=== PATIENT | female | born 1990 | race Caucasian/White ===

== ENCOUNTER 2023-12-01 09:13 | Outpatient (CLI) | payer OTHER, SELFPAY ==
[2023-12-01 16:03] LABS: Chlamydia DNA Amplified* NOT DETECTED (No Detected); GC DNA Amplified* NOT DETECTED (No Detected)
== END 2023-12-01 09:14 | disposition home or self-care (01) ==
PROVIDERS: Visit Provider Registered Nurse
DX: Z01.419 Encounter for gynecological examination (general) (routine) without abnormal findings (principal); R68.82 Decreased libido; R53.83 Other fatigue; Z11.3 Encounter for screening for infections with a predominantly sexual mode of transmission
CPT/HCPCS: 80061; 82947; 84443; 87491; 87591

== ENCOUNTER 2023-12-21 08:25 | Outpatient (CLI) | payer OTHER, SELFPAY ==
--- NOTE | 2023-12-21 08:45 | MM_ITS ---
Patient: JUAN CARLOS MCCOY Facility:?[facility] Patient ID:?[id number] Site Patient ID:?[id number]. Site :?1990 Study:?XRay-Breast Left 3D W/CAD-12/21/2023 9:08:00 AM Ordering Physician:?Grisel Ch Final Report: DIGITAL DIAGNOSTIC LEFT MAMMOGRAM USING TOMOSYNTHESIS AND COMPUTER-AIDED DETECTION LEFT BREAST ULTRASOUND CLINICAL HISTORY: LEFT breast lump. COMPARISON: None. TECHNIQUE: Digital LEFT mammogram in two projections. Tomosynthesis and CAD utilized. Real-time ultrasound imaging of LEFT breast with imaging documentation. BREAST COMPOSITION: The breast is heterogeneously dense, which may obscure small masses. FINDINGS: 3D CC/MLO LEFT breast mammogram images submitted. No suspicious masses or architectural distortion. No adenopathy or suspicious calcifications. Targeted LEFT breast ultrasound performed in the area of concern at 10 o`clock 7 cm from the nipple. Normal fibroglandular tissue is present. No fluid collection or mass. IMPRESSION: No evidence of malignancy. No suspicious findings. RECOMMENDATIONS: Clinical follow-up. Age-appropriate screening mammography. Results and recommendations were discussed with the patient at the time of the exam. BI-RADS Category 2: Benign A lay language report of this examination will be provided to the patient. Dictated by Kevin Hinojosa MD @ 12/21/2023 10:03:35 AM jj/Dictated by: Kevin Hinojosa MD @ 12/21/2023 10:03:00 AM Signed by:?Kevin Hinojosa MD @12/21/2023 12:07:15 PM (Electronic Signature)
--- NOTE | 2023-12-21 09:15 | US_ITS ---
Patient: JUAN CARLOS MCCOY Facility:?[facility] Patient ID:?[id number] Site Patient ID:?[id number]. Site :?1990 Study:?US-Breast Left DR RUBIN TO READ-12/21/2023 9:17:36 AM Ordering Physician:?MARIKA VIDES Final Report: PLEASE SEE DIGITAL DIAGNOSTIC LEFT MAMMOGRAM PERFORMED SAME DAY CRL:michael rodriguez/Dictated by: Kevin Rubin MD @ 12/21/2023 10:03:00 AM Signed by:?Kevin Rubin MD @12/21/2023 12:07:18 PM (Electronic Signature)
== END 2023-12-21 08:26 | disposition home or self-care (01) ==
LOC: MAMMO 08:25
PROVIDERS: Visit Provider Registered Nurse
DX: N63.22 Unspecified lump in the left breast, upper inner quadrant (principal)
CPT/HCPCS: 76642; 77065; G0279

== ENCOUNTER 2024-09-27 13:21 | Outpatient (CLI) | payer OTHER, SELFPAY ==
[2024-09-27 23:46] LABS: Bacterial Vaginosis* POSITIVE (Negative); Candida glab/krus NOT DETECTED (No Detected); Candida species NOT DETECTED (No Detected); Trichomonas vaginalis NOT DETECTED (No Detected)
[2024-09-28 00:18] LABS: Chlamydia DNA Amplified* NOT DETECTED (No Detected); GC DNA Amplified* NOT DETECTED (No Detected)
[2024-09-30 04:49] LABS: HPV Source Cervix; HPV, High Risk by TMA Detected
[2024-10-01 18:05] LABS: HPV Genotype 16 by TMA Not Detected; HPV Genotype 18/45 by TMA Not Detected; HPVG Source Cervix
== END 2024-09-27 13:22 | disposition home or self-care (01) ==
PROVIDERS: Visit Provider Registered Nurse
DX: Z12.4 Encounter for screening for malignant neoplasm of cervix (principal); Z11.3 Encounter for screening for infections with a predominantly sexual mode of transmission; Z11.51 Encounter for screening for human papillomavirus (HPV)
CPT/HCPCS: 81513; 86592; 86703; 86803; 87340; 87481; 87491; 87591; 87624; 87625; 87661; 88141; 88142

== ENCOUNTER 2024-10-10 08:24 | Outpatient (CLI) | payer OTHER, SELFPAY | END 2024-10-10 08:25 | disposition home or self-care (01) | LOC: MAMMO 08:25 | PROVIDERS: Visit Provider Registered Nurse | DX: N64.3 Galactorrhea not associated with childbirth (principal); R92.333 Mammographic heterogeneous density, bilateral breasts | CPT/HCPCS: 76642; 77065; G0279 ==